=== PATIENT | female | born 1965 | race Caucasian/White ===

== ENCOUNTER 2017-07-28 10:03 | Day surgery (SDC) | payer OTHER ==
[~2017-07-28] VITALS: Ht 160 cm; Wt 66.3 kg
[2017-07-28 11:13] VITALS: Ht 160 cm; Wt 66.3 kg
[2017-07-28] MEDS ORDERED: NO MEDS. (11:17)
[2017-07-28 11:44] VITALS: BP 133/76; PULSE 76; RESP 24
--- NOTE | 2017-07-28 12:16 | OPPN ---
Date/Time of Note Date/Time of Note DATE: 07/28/17 TIME: 12:15 Operative Report Preoperative Diagnosis Screening Postoperative Diagnosis Sigmoid polyp was removed Diverticulosis of the colon Internal hemorrhoids Operation/Procedure Performed Colonoscopy and polypectomy Surgeon see signature line research lab assistant None Anesthesia: moderate sedation Estimated blood loss: none Transfusion Required none Specimen Sigmoid polyp Grafts/Implants none Complications none JD MILLER MD Jul 28, 2017 12:16
[2017-07-28 12:21] VITALS: BP 101/68; RESP 15
--- NOTE | 2017-07-28 14:04 | GILP ---
DATE OF PROCEDURE: NAME OF PROCEDURES: Colonoscopy and polypectomy. SURGEON: Jd Manning MD PREOPERATIVE DIAGNOSIS: Screening colonoscopy. POSTOPERATIVE DIAGNOSES 1. Colonoscopy all the way to the cecum. 2. Sigmoid colon polyp was removed using the snare and electrocautery. 3. Mild diverticulosis of the colon. 4. Internal hemorrhoids. INDICATION FOR THE PROCEDURE: Ms. Esmer Loo is a 51-year-old female patient who was schedu led for screening colonoscopy. The procedure and possible complications are well explained to the patient, she understood and conse nted to the procedure. DESCRIPTION OF PROCEDURE: Under the influence of fentanyl and Versed, the colonoscope was carefully introduced in the rectum and under direct vision it was advanced all the way to the cecum. FINDINGS: The patient had a sigmoid colon polyp and it was removed using the snare and electrocaute ry. She had mild diverticulosis of the colon and internal hemorrhoids. She tolerated the procedure very well and there was no complication from the procedure. At the end of the procedure, she was awake with stable vital signs and she was discharged home to the care of h er family. IMPRESSION: Please see postoperative diagnosis. PLAN: 1. Await histopathology report. 2. Next screening colonoscopy in 5 years. 3. Advised high fiber diet. Dictated By: JD NUGENT/CAILIN Conf#: [id number] DID#: [id number]
[2017-07-28] MEDS ORDERED: FENTAnyl 50 MCG/ML VIAL ONE (14:07)
[2017-07-28] MEDS ORDERED: MIDAZOLAM 1 MG/ML 2 ML INJ ONE ×3 (14:07→14:08)
== END 2017-07-28 19:16 | disposition home or self-care (01) ==
LOC: GIL 10:03
PROVIDERS: ATTEND Internal Medicine Gastroenterology
DX: Z12.11 Encounter for screening for malignant neoplasm of colon (principal); D12.5 Benign neoplasm of sigmoid colon; K57.90 Diverticulosis of intestine, part unspecified, without perforation or abscess without bleeding; K64.8 Other hemorrhoids
CPT/HCPCS: 45380; 88305; J2250; J3010; Z7610